=== PATIENT | female | born 1955 | race African-American/Black ===

== ENCOUNTER 2019-07-26 20:36 | Inpatient (IN) | payer MEDICAID ==
[~2019-07-26] VITALS: Ht 170.2 cm; Wt 89.8 kg
[2019-07-26 21:25] LABS: Basophils # (auto) 0 uL; Eosinophils # (auto) 0 uL; Hemoglobin 9.1 g/dL (12.2-16.2)
[2019-07-26 21:26] LABS: White Blood Cell 9.9 10^3/uL (4.4-10.8)
[2019-07-26 21:31] LABS: Basophils % (auto) 0.4 % (0.0-2.0); Eosinophils % (auto) 0.5 % (0.0-7.0); Monocytes % (auto) 5.6 % (0.0-12.0); Neutrophils % (auto) 86.5 % (37.0-80.0)
[2019-07-26 21:32] LABS: Lymphocytes # (auto) 0.7 uL; Monocytes # (auto) 0.6 uL; Neutrophils # (auto) 8.6 uL; Nucleated Red Blood Cells % 0.3 %; Red Blood Cells 3.72 10^6/uL (4.0-5.20)
[2019-07-26 21:33] LABS: Mean Corpuscular Hemoglobin 24.4 pg (28.0-32.0); Mean Corpuscular Hgb Conc. 29.2 g/dL (32.0-36.0); Mean Corpuscular Volume 83.5 fL (80.0-100.0); Red Cell Distribution Width 23.6 % (11.8-14.3)
[2019-07-26 21:34] LABS: Platelet Count (auto) 508 10^3/uL (140-450)
[2019-07-26 21:38] LABS: Albumin 1.7 g/dL (3.4-5.0); BUN/Creatinine Ratio 14.3; Calcium 8.5 mg/dL (8.5-10.1); Potassium 3.4 mmol/L (3.5-5.1)
[2019-07-26 21:43] LABS: Bilirubin, Total 0.5 mg/dL (0.2-1.0); INR 1.22 (0.9-1.15); Partial Thromboplastin Time 38.4 sec (23.64-32.05); Total Protein 6.7 g/dL (6.4-8.2)
[2019-07-26] MEDS ORDERED: ONDANSETRON HCL 4 MG/2 ML VIAL IV ONE (23:00)
[2019-07-26] MEDS ORDERED: MORPHINE SULFATE 4 MG/ML SYR/VIAL IV ONE (23:00)
[2019-07-27] MEDS ORDERED: ONDANSETRON HCL 4 MG/2 ML VIAL IV PRN (01:00)
[2019-07-27] MEDS ORDERED: DEXTROSE (50%) 50ML SYRG IV PRN (01:00)
[2019-07-27] MEDS ORDERED: ACETAMINOPHEN 325 MG TAB PO PRN (01:00)
[2019-07-27] MEDS: ACCU-CHEK COMFORT CURVE STRIP VI SCH ×2 (06:00→13:01)
[2019-07-27] MEDS: InsuLIN REG 1unit/0.01ml Soln (100units/ml) SC SCH ×2 (06:36→12:00)
[2019-07-27] MEDS ORDERED: LEVOTHYROXINE SODIUM 25 MCG TAB PO SCH (07:00)
[2019-07-27] MEDS ORDERED: PANTOPRAZOLE 40 MG TAB PO SCH (07:00)
[2019-07-27] MEDS ORDERED: amLODIPine BESYLATE 5 MG TAB PO SCH (10:00)
[2019-07-27] MEDS ORDERED: ENOXAPARIN SOD 40 MG/0.4 ML SYRINGE SC SCH (10:00)
[2019-07-27] MEDS ORDERED: CARVEDILOL 3.125 MG TAB PO SCH (10:00)
[2019-07-27] MEDS ORDERED: FUROSEMIDE 40 MG TAB PO SCH (10:00)
[2019-07-27] MEDS ORDERED: CLOPIDOGREL BISULFATE 75 MG TAB PO SCH (10:00)
--- NOTE | 2019-07-27 10:31 | NUR ---
Discharge planning per SS consult, patient has orders for SNF placement. Referral sent to [facility], [facility], [facility] and [facility]. Acceptance is pending.
--- NOTE | 2019-07-27 14:45 | NUR ---
Discharge planning per consult, patient has orders for SNF. [facility] [phone] (please ask for station [phone] when giving report) has accepted patient into room [address] Dias. Transportation was arranged with [employer] [phone] and the black pickler time is scheduled for 4:30pm. Nurse Nina was advised of dc plan. Auth obtained from [facility] [id number]; transportation [id number]. Addendum: 07/27/19 at 1448 by MADHURI BILL Amended: Links added.
[2019-07-27 16:00] VITALS: BP 173/78
[2019-07-27] MEDS ORDERED: ATORVASTATIN 20 MG TAB PO SCH (22:00)
== END 2019-07-27 17:20 | DRG 421 ==
LOC: EDBD 20:36 → ER 20:38 → OVERFLOW 20:39
PROVIDERS: ADMIT Nurse Practitioner; ATTEND Internal Medicine Nephrology
DX: R62.7 Adult failure to thrive (principal); G30.0 Alzheimer's disease with early onset; F02.80 Dementia in other diseases classified elsewhere, unspecified severity, without behavioral disturbance, psychotic disturbance, mood disturbance, and anxiety; E11.9 Type 2 diabetes mellitus without complications; E66.9 Obesity, unspecified; D63.8 Anemia in other chronic diseases classified elsewhere; E78.5 Hyperlipidemia, unspecified; E87.6 Hypokalemia; F17.210 Nicotine dependence, cigarettes, uncomplicated; I10 Essential (primary) hypertension; Z79.899 Other long term (current) drug therapy; Z79.4 Long term (current) use of insulin; Z88.2 Allergy status to sulfonamides
CPT/HCPCS: 36415; 71045; 80053; 82962; 83880; 84484; 85025; 85610; 85730; 93005; G0378; J1815; J2405